=== PATIENT | male | born 1975 | race Caucasian/White ===

== ENCOUNTER → 2021-10-26 | Day surgery (SDC) | payer OTHER ==
[~2021-10-26] VITALS: Ht 185.4 cm; Wt 106.6 kg
[~2021-10-26] MED LIST: BRILINTA60 MG PO; COREG 6.25MG6.25 MG PO; CRESTOR20 MG PO; KEFLEX250 MG PO; PROTONIX 40MG T40 MG PO
[2021-10-26 10:45] LABS: ALBUMIN 4.1 g/dL (3.4-5.0); BILIRUBIN - TOTAL 1.7 mg/dL (0.2-1.0); BUN/CREAT RATIO (CALC) 8.8 RATIO; CREATININE 1.13 mg/dL (0.67-1.17); GLOBULIN (CALCULATION) 3.3 g/dL; POTASSIUM 3.5 mmol/L (3.5-5.1); TOTAL PROTEIN 7.4 g/dL (6.4-8.2)
== END | disposition home or self-care (01) ==
LOC: FAS 08:56
PROVIDERS: Surgery
DX: K29.50 Unspecified chronic gastritis without bleeding (principal); K31.7 Polyp of stomach and duodenum; K21.9 Gastro-esophageal reflux disease without esophagitis; Z12.11 Encounter for screening for malignant neoplasm of colon; I25.10 Atherosclerotic heart disease of native coronary artery without angina pectoris; I25.2 Old myocardial infarction; I25.5 Ischemic cardiomyopathy; E78.5 Hyperlipidemia, unspecified; Z95.5 Presence of coronary angioplasty implant and graft; K44.9 Diaphragmatic hernia without obstruction or gangrene
CPT/HCPCS: 43239; 43251; G0121; 36415; 80053; 82150; 83690; J2250; J7120

== ENCOUNTER → 2022-03-10 | Day surgery (SDC) | payer OTHER ==
[~2022-03-10] VITALS: Ht 185.4 cm; Wt 106.6 kg
[~2022-03-10] MED LIST changes: +DEXILANT60 MG PO
== END | disposition home or self-care (01) ==
LOC: FAS 09:31
DX: K31.7 Polyp of stomach and duodenum (principal); K29.80 Duodenitis without bleeding; K22.5 Diverticulum of esophagus, acquired; K44.9 Diaphragmatic hernia without obstruction or gangrene; K21.9 Gastro-esophageal reflux disease without esophagitis; K22.0 Achalasia of cardia; I25.2 Old myocardial infarction; I25.10 Atherosclerotic heart disease of native coronary artery without angina pectoris; E78.5 Hyperlipidemia, unspecified; I10 Essential (primary) hypertension; Z79.899 Other long term (current) drug therapy
CPT/HCPCS: J2704; J7120